=== PATIENT | male | born 1970 | race Caucasian/White ===

== ENCOUNTER 2025-05-24 08:55 | Emergency (ER) | payer OTHER, BC ==
[~2025-05-24] VITALS: Ht 177.8 cm; Wt 97.7 kg
[2025-05-24 08:57] VITALS: TEMP 98.5
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
[2025-05-24] MEDS ORDERED: iohexol 300mg/ml 100ml inj. ONE (09:35)
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
[2025-05-24] MEDS: ketorolac trometh 30MG/ML vial 30 MG/ML VIAL IV ONE (10:28)
[2025-05-24] MEDS: orphenadrine citrate 60mg/2ml inj. IV ONE (10:28)
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
[2025-05-24] MEDS ORDERED: NAPR-56 PO (11:06)
[2025-05-24] MEDS ORDERED: CYCL-920 PO (11:06)
[2025-05-24 11:35] VITALS: BP 134/69; PULSE 81; RESP 16; O2SAT 100
== END 2025-05-24 11:37 | disposition home or self-care (01) ==
LOC: ER 08:56
DX: M54.50 Low back pain, unspecified (principal); R07.89 Other chest pain; M54.2 Cervicalgia; V49.40XA Driver injured in collision with unspecified motor vehicles in traffic accident, initial encounter; Y93.89 Activity, other specified; Y92.89 Other specified places as the place of occurrence of the external cause; Y99.8 Other external cause status
CPT/HCPCS: 70450; 71260; 72125; 72128; 72131; 74177; 96374; 96375; 99285; J1885; J2360; Q9967